=== PATIENT | female | born 1970 | race Caucasian/White ===

== ENCOUNTER 2017-10-27 06:35 | Emergency (ER) | payer SELFPAY ==
[~2017-10-27] VITALS: Ht 167.6 cm; Wt 81.6 kg
[~2017-10-27 06:35] MED LIST: ACYCLOVIR800 MG PO; AMOXICILLIN500 MG PO; CLARITIN10 MG; CLARITIN10 MG PO; MEDROL; MEDROL DOSEPAK4 MG PO; NKHM; ZOVIRAX800 MG PO
[2017-10-27 06:59] LABS: BASO % 0.6 % (0.0-1.0); EOS # 0.1 10*3/uL (0.0-0.4); EOS % 1.9 % (1.0-4.0); HEMOGLOBIN 12.3 g/dl (12.0-16.0); LYMPH # 0.6 10*3/uL (1.3-4.4); LYMPH % 12.7 % (27.0-41.0); MEAN CELL VOLUME 88.7 fl (81.0-99.0); MEAN CORPUSCULAR HGB 30.3 pg (27.0-31.0); MEAN CORPUSCULAR HGB CONC 34.2 g/dl (33.0-37.0); MEAN PLATELET VOLUME 9.8 fl (9.6-12.3); MONO # 0.4 10*3/uL (0.1-1.0); MONO % 7.6 % (3.0-9.0); NEUT # 3.6 10*3/uL (2.3-7.9); PLATELET COUNT AUTOMATED 213 10*3/uL (130-400); RED BLOOD COUNT 4.06 10*6/uL (4.10-5.10); RED CELL DISTRI WIDTH 13.6 % (0-14.5); WHITE BLOOD COUNT 4.7 10*3/uL (4.8-10.8)
[2017-10-27 07:09] LABS: ACT PARTIAL THROMBO TIME 27.6 SECONDS (20.8-31.5)
[2017-10-27 07:20] LABS: ALBUMIN 3.7 gm/dl (3.1-4.5); ALKALINE PHOSPHATASE 102 U/L (45-117); BUN 8 mg/dl (7-24); CHLORIDE 103 mmol/L (98-107); CREATININE 0.95 mg/dL (0.55-1.02); POTASSIUM 3.6 mmol/L (3.5-5.1); SGOT/AST 20 IU/L (3-35); SGPT/ALT 19 U/L (12-78); SODIUM 137 mmol/L (136-145)
[2017-10-27 07:38] LABS: TROPONIN I < 0.015 ng/ml (<0.045)
[2017-10-27 07:42] LABS: BILIRUBIN NEGATIVE (NEGATIVE); BLOOD NEGATIVE (NEGATIVE); CLARITY CLEAR (CLEAR); COLOR YELLOW (YELLOW); GLUCOSE NEGATIVE (NEGATIVE); KETONE TRACE (NEGATIVE); LEUKO ESTERASE NEGATIVE (NEGATIVE); NITRITE NEGATIVE (NEGATIVE); PH 5.5 (5.0-9.0); UROBILINOGEN 0.2 E.U./dl (0.2-1.0)
[2017-10-27 07:53] LABS: BACTERIA TRACE; MUCOUS 1+
[2017-10-27] MEDS ORDERED: Motrin,Rufen800 MG PO (11:03)
[2017-10-27] MEDS ORDERED: TAMIFLU 75MG CA75 MG PO (11:03)
[2017-10-27] MEDS ORDERED: ZOFRAN ODT4 MG SL (11:03)
== END 2017-10-27 11:30 | disposition home or self-care (01) ==
LOC: ED 06:35
PROVIDERS: Emergency Medicine; Student in an Organized Health Care Education/Training Program
DX: J09.X2 Influenza due to identified novel influenza A virus with other respiratory manifestations (principal); R11.2 Nausea with vomiting, unspecified; R19.7 Diarrhea, unspecified; Z79.899 Other long term (current) drug therapy

== ENCOUNTER 2021-05-14 18:09 | Emergency (ER) | payer OTHER ==
[~2021-05-14] VITALS: Wt 86.2 kg
[~2021-05-14 18:09] MED LIST changes: +Motrin,Rufen800 MG PO; +TAMIFLU 75MG CA75 MG PO; +ZOFRAN ODT4 MG SL
== END 2021-05-14 20:58 | disposition home or self-care (01) ==
LOC: ED 18:09
DX: S61.212A Laceration without foreign body of right middle finger without damage to nail, initial encounter (principal); S61.214A Laceration without foreign body of right ring finger without damage to nail, initial encounter; Z79.899 Other long term (current) drug therapy; W23.0XXA Caught, crushed, jammed, or pinched between moving objects, initial encounter; Y93.89 Activity, other specified; Y92.69 Other specified industrial and construction area as the place of occurrence of the external cause; Y99.9 Unspecified external cause status

== ENCOUNTER 2022-12-24 14:44 | Emergency (ER) | payer OTHER ==
[~2022-12-24] VITALS: Wt 88.5 kg
== END 2022-12-24 16:47 | disposition home or self-care (01) ==
LOC: ED 14:44
DX: S46.911A Strain of unspecified muscle, fascia and tendon at shoulder and upper arm level, right arm, initial encounter (principal); X50.0XXA Overexertion from strenuous movement or load, initial encounter; Y93.89 Activity, other specified; Y92.89 Other specified places as the place of occurrence of the external cause; Y99.8 Other external cause status